=== PATIENT | female | born 1955 | race Caucasian/White ===

== ENCOUNTER 2016-06-11 14:53 | Observation (INO) | payer OTHER ==
[~2016-06-11] VITALS: Ht 172.7 cm; Wt 99.5 kg
[~2016-06-11 14:53] MED LIST: ASCORBIC ACID500 M3 PO; BISOPROLOL-HCT1 EAC1 PO; CALTRATE PLUS1 EACH PO; CENTRUM SILVER1 EAC4 PO; CINNAMON500 MG PO; CLARINEX5 MG PO; FISH OIL 1,0001 EAC7 PO; FISH OIL 1,2001 EAC4 PO; LEXAPRO20 MG PO; LO-DOSE ASPIRIN81 M1 PO; LYRICA75 MG PO; MULTIPLE VITAM1 EAC1 PO; NEXIUM40 MG PO; VITAMIN B-12500 MC3 PO; ZANAFLEX4 M1 PO; ZETIA10 MG PO
[2016-06-11 15:36] LABS: MCH 28.7 PG (29.0-34.0); MCHC 32.6 G/DL (30.0-36.0); MCV 88.2 FL (83-99); MEAN PLAT.VOLUME 11.2 uM^3 (9.5-12.4); PLATELET COUNT 343 K/uL (156-360); RBC DIS.WIDTH-CV 13.3 % (11.8-14.6); RBC DIS.WIDTH-SD 41.8 % (39-53); RED BLOOD COUNT 4.42 M/uL (3.80-5.20); WHITE BLOOD COUNT 7.6 K/uL (4.1-10.2)
[2016-06-11 15:53] LABS: CHLORIDE 107 mEq/L (99-109); SODIUM 143 mEq/L (136-147)
[2016-06-11 15:55] LABS: GLUCOSE 124 mg/dL (70-99)
[2016-06-11 15:56] LABS: ANION GAP 11 MEQ/L (2-14)
[2016-06-11 15:59] LABS: GFR ESTIMATE (CALCULATED) 54 mL/min/
[2016-06-11 16:00] LABS: UREA NITROGEN (BUN) 19 mg/dL (9-23)
[2016-06-11 18:53] LABS: TROP-I INTERPRETATION NEGATIVE; TROPONIN-I < 0.01 ng/mL (0.0-0.30)
[2016-06-11] MEDS ORDERED: VOLTAREN75 MG PO (19:06)
[2016-06-11] MEDS ORDERED: VITAMIN B-12500 MC5 SL (19:07)
[2016-06-11] MEDS ORDERED: FLONASE16 G1 BOTH NARES (19:08)
[2016-06-11 21:57] LABS: HDL CHOLESTEROL 49 MG/DL (Desirable>=50); LDL CHOLESTEROL 115 mg/dL (Desirable<100); NON-HDL CHOLESTEROL 154 mg/dL (Desirable<160); TOTAL CHOLESTEROL 203 mg/dL (Desirable<200); TRIGLYCERIDES 193 MG/DL (Normal: <150)
[2016-06-11 21:57] LABS: Estimated Average Glucose 117 mg/dL (70-123); HEMOGLOBIN A1c (GLYCOHEMOGLOB) 5.7 % HGB (Below 5.7)
[2016-06-11 22:02] VITALS: BP 159/83
[2016-06-12 00:17] VITALS: BP 136/74
[2016-06-12 03:58] VITALS: BP 127/61
[2016-06-12 06:05] LABS: HEMATOCRIT 39.9 % (36.0-46.0); MCH 27.8 PG (29.0-34.0); MCHC 31.1 G/DL (30.0-36.0); MCV 89.5 FL (83-99); MEAN PLAT.VOLUME 11.5 uM^3 (9.5-12.4); PLATELET COUNT 296 K/uL (156-360); RBC DIS.WIDTH-CV 13.5 % (11.8-14.6); RED BLOOD COUNT 4.46 M/uL (3.80-5.20); WHITE BLOOD COUNT 5.7 K/uL (4.1-10.2)
[2016-06-12 08:28] VITALS: BP 142/78
[2016-06-12 12:49] VITALS: BP 146/82
[2016-06-12] MEDS ORDERED: TYLENOL REGULA325 MG PO (14:52)
== END 2016-06-12 15:28 | disposition home or self-care (01) ==
LOC: EME 14:53 → 5WEST 20:21 → EDOF 20:21 → 5WEST 21:48
PROVIDERS: Hospitalist
DX: G45.9 Transient cerebral ischemic attack, unspecified (principal); G43.909 Migraine, unspecified, not intractable, without status migrainosus; I47.1 Supraventricular tachycardia; E78.5 Hyperlipidemia, unspecified; F32.9 Major depressive disorder, single episode, unspecified
CPT/HCPCS: 70450; 71020; 80048; 80061; 83036; 84484; 85027; 93005; 93880; 99281; 99285; G0378; J0780; J1200; J1650; J7030